=== PATIENT | female | born 1940 | race Hispanic/Latino ===

== ENCOUNTER 2018-06-20 07:45 | Day surgery (SDC) | payer OTHER ==
[2018-06-19 14:21] VITALS: BP 148/80
[2018-06-19 14:23] LABS: EOSINOPHILS % (AUTO) 1.5 % (0.0-8.0); HEMATOCRIT 39.2 % (36-48); LYMPHOCYTES % (AUTO) 20.5 % (21.0-51.0); MEAN CORPUSCULAR HEMOGLOBIN 33.1 pg (27.0-33.0); MEAN CORPUSCULAR HGB CONC 33.7 g/dL (32.0-36.0); MEAN CORPUSCULAR VOLUME 98.4 fL (79-99); PLATELET COUNT (AUTO) 208 K/uL (130-400); RED BLOOD CELL COUNT(AUTO) 3.98 MIL/uL (4.00-5.50); RED CELL DISTRIBUTION WIDTH 13.4 % (11.0-15.5); WHITE BLOOD COUNT (AUTO) 7.5 K/uL (4.8-10.8)
[2018-06-19 14:35] LABS: CREATININE 0.7 mg/dL (0.5-1.5); POTASSIUM 3.8 mmol/L (3.5-5.1)
[2018-06-19 14:37] LABS: INR 1.15 (0.85-1.15)
[2018-06-20] VITALS (18 sets, daily range): BP systolic 128–186; BP diastolic 52–106
[~2018-06-20] VITALS: Ht 157.5 cm; Wt 65.1 kg
[~2018-06-20 07:45] MED LIST: AMIO200T5 PO; FURO20TA4 PO; GABA-529 PO; LORA10TA7 PO; METO100T14 PO; OLME40TA18 PO; PANT40TA25 PO; RALO60TA13 PO; RIVA20TA PO; SIMV20TA6 PO; SODIUM CHLORIDE 0.9% 1000ML 1,000 ML IV SCH
[2018-06-20] MEDS ORDERED: MIDAZOLAM HCL 1 MG/ML 2ML VIAL ONE ×2 (08:39→08:40)
[2018-06-20] MEDS ORDERED: FENTANYL CITRATE PF 50 MCG/1 ML 2ML VIAL ONE (08:39)
== END 2018-06-20 12:00 | disposition home or self-care (01) ==
LOC: DAH 07:45
PROVIDERS: ATTEND Internal Medicine Cardiovascular Disease
DX: I48.1 Persistent atrial fibrillation (principal); E78.5 Hyperlipidemia, unspecified; E11.9 Type 2 diabetes mellitus without complications; I11.0 Hypertensive heart disease with heart failure; I50.32 Chronic diastolic (congestive) heart failure; Z79.01 Long term (current) use of anticoagulants; Z79.899 Other long term (current) drug therapy
CPT/HCPCS: 36415; 80048; 82948; 85025; 85610; 85730; 92960; 93005 ×2; 99156; A4606; J2250; J3010; 99155

== ENCOUNTER 2018-09-15 21:22 | Emergency (ER) | payer OTHER ==
[~2018-09-15 21:22] MED LIST changes: -METO100T14 PO; -SODIUM CHLORIDE 0.9% 1000ML 1,000 ML IV SCH
== END 2018-09-16 00:37 | disposition home or self-care (01) ==
LOC: EDH 21:22
DX: M17.12 Unilateral primary osteoarthritis, left knee (principal); I48.91 Unspecified atrial fibrillation; E11.9 Type 2 diabetes mellitus without complications; E78.5 Hyperlipidemia, unspecified; I10 Essential (primary) hypertension; I25.10 Atherosclerotic heart disease of native coronary artery without angina pectoris; Z79.899 Other long term (current) drug therapy; Z90.710 Acquired absence of both cervix and uterus
CPT/HCPCS: 73562; 93971

== ENCOUNTER → 2019-08-13 | Outpatient (CLI) | payer OTHER ==
[~2019-08-13] MED LIST changes: +SIMV-43 PO; -SIMV20TA6 PO
== END | disposition home or self-care (01) ==
LOC: RAH 16:09
PROVIDERS: ATTEND Internal Medicine
DX: M20.092 Other deformity of left finger(s) (principal); M85.842 Other specified disorders of bone density and structure, left hand; M25.742 Osteophyte, left hand; S60.02 Contusion of index finger without damage to nail; Y92.89 Other specified places as the place of occurrence of the external cause
CPT/HCPCS: 73130

== ENCOUNTER → 2020-02-27 | Outpatient (CLI) | payer OTHER ==
[~2020-02-27] MED LIST changes: -AMIO200T5 PO; +AMIO200T6 PO; -PANT40TA25 PO; +PANT40TA54 PO
== END | disposition home or self-care (01) ==
LOC: SHCH 11:22
PROVIDERS: ATTEND Internal Medicine Cardiovascular Disease
DX: R09.89 Other specified symptoms and signs involving the circulatory and respiratory systems (principal)
CPT/HCPCS: 93880

== ENCOUNTER 2020-10-22 06:50 | Day surgery (SDC) | payer MEDICARE, OTHER ==
[2020-10-21 12:29] LABS: BASOPHILS % (AUTO) 1.3 % (0.0-5.0); EOSINOPHILS % (AUTO) 1.4 % (0.0-8.0); HEMATOCRIT 38.1 % (36-48); LYMPHOCYTES % (AUTO) 24.2 % (21.0-51.0); MEAN CORPUSCULAR HEMOGLOBIN 32.9 pg (27.0-33.0); MEAN CORPUSCULAR HGB CONC 33.6 g/dL (32.0-36.0); MEAN CORPUSCULAR VOLUME 97.9 fL (79-99); MONOCYTES % (AUTO) 7.7 % (3.0-13.0); NEUTROPHILS % (AUTO) 64.9 % (40.0-77.0); PLATELET COUNT (AUTO) 224 K/uL (130-400); RED BLOOD CELL COUNT(AUTO) 3.89 MIL/uL (4.00-5.50); WHITE BLOOD COUNT (AUTO) 6.4 K/uL (4.8-10.8)
[2020-10-21 12:40] LABS: CREATININE 0.8 mg/dL (0.5-1.5)
[2020-10-21 13:00] LABS: INR 1.27 (0.85-1.15); PROTHROMBIN TIME 13.5 SEC (9.6-11.6)
[2020-10-21 13:02] LABS: PARTIAL THROMBOPLASTIN TIME 34.2 SEC (26.3-35.5)
[2020-10-21 15:38] VITALS: BP 117/68
[2020-10-22] VITALS (15 sets, daily range): BP systolic 130–163; BP diastolic 50–113
[~2020-10-22] VITALS: Ht 157.5 cm; Wt 65.7 kg
[~2020-10-22 06:50] MED LIST changes: +0.9%NACL 1000ML 1,000 ML IV SCH; -AMIO200T6 PO; +ASCO500C18 PO; +CA/D1TAB7 PO; +EYEDROPS OU; -FURO20TA4 PO; +LORA10CA PO; -LORA10TA7 PO; +MAGN400T40 PO; +METO75TA PO; +MULT-1250 PO; +OLME-9 PO; -OLME40TA18 PO; +PROP325C5 PO; +TRIA10.8 NS; +VALA10002 PO; +ZINC30CA PO
[2020-10-22] MEDS ORDERED: MIDAZOLAM HCL 1 MG/ML 2ML VIAL ONE (08:52)
[2020-10-22] MEDS ORDERED: FENTANYL CITRATE PF 50 MCG/1 ML 2ML VIAL ONE (08:52)
[2020-10-22] MEDS ORDERED: FLUMAZENIL 0.1MG/1ML 5ML VIAL IV ONE (09:06)
[2020-10-22] MEDS ORDERED: ONDANSETRON 4MG INJ ONE (09:30)
[2021-01-20] MEDS ORDERED: VYZULTA (15:22)
[2021-01-20] MEDS ORDERED: VYZULTA 0.024% OU (15:22)
[2021-01-20] MEDS ORDERED: DRON400T7 PO (15:22)
[2021-01-20] MEDS ORDERED: APIX5TAB PO (15:22)
[2021-05-20] MEDS ORDERED: AMIO200T68 PO (08:41)
== END 2020-10-22 11:28 | disposition home or self-care (01) ==
LOC: DAH 06:50
PROVIDERS: ATTEND Internal Medicine Cardiovascular Disease
DX: I48.0 Paroxysmal atrial fibrillation (principal); I11.0 Hypertensive heart disease with heart failure; I50.32 Chronic diastolic (congestive) heart failure; E11.9 Type 2 diabetes mellitus without complications; E78.5 Hyperlipidemia, unspecified; Z90.710 Acquired absence of both cervix and uterus; Z98.890 Other specified postprocedural states; Z79.1 Long term (current) use of non-steroidal anti-inflammatories (NSAID); Z79.01 Long term (current) use of anticoagulants; Z79.899 Other long term (current) drug therapy
CPT/HCPCS: 36415; 80048; 82948 ×2; 85025; 85610; 85730; 92960; 93005 ×2; A4215; A4216; A4221; A4222; A4223 ×3; A4606; A4663; J2250; J2405; J3010; J3490; J7030; 99152

== ENCOUNTER → 2020-11-27 | Outpatient (CLI) | payer MEDICARE, OTHER ==
[~2020-11-27] MED LIST changes: -0.9%NACL 1000ML 1,000 ML IV SCH; +DRON400T2 PO; +SODIUM CHLORIDE 0.9% 1000ML 1,000 ML IV SCH
[2020-11-27 14:46] LABS: BASOPHILS % (AUTO) 0.9 % (0.0-5.0); EOSINOPHILS % (AUTO) 1.2 % (0.0-8.0); HEMATOCRIT 23.3 % (36-48); LYMPHOCYTES % (AUTO) 24.4 % (21.0-51.0); MEAN CORPUSCULAR HEMOGLOBIN 33.2 pg (27.0-33.0); MEAN CORPUSCULAR VOLUME 100.4 fL (79-99); MONOCYTES % (AUTO) 7.3 % (3.0-13.0); NEUTROPHILS % (AUTO) 65.9 % (40.0-77.0); PLATELET COUNT (AUTO) 243 K/uL (130-400); RED BLOOD CELL COUNT(AUTO) 2.32 MIL/uL (4.00-5.50); WHITE BLOOD COUNT (AUTO) 7.4 K/uL (4.8-10.8)
[2020-11-27 14:53] LABS: CREATININE 0.8 mg/dL (0.5-1.5); POTASSIUM 3.9 mmol/L (3.5-5.1)
[2020-11-27 15:05] LABS: INR 1.26 (0.85-1.15); PROTHROMBIN TIME 13.4 SEC (9.6-11.6)
[2020-11-27 15:06] LABS: PARTIAL THROMBOPLASTIN TIME 28.7 SEC (26.3-35.5)
== END ==
LOC: DAH 10:00 → EDSTATUS 13:00
PROVIDERS: ATTEND Internal Medicine Cardiovascular Disease
DX: Z01.818 Encounter for other preprocedural examination (principal); I48.19 Other persistent atrial fibrillation
CPT/HCPCS: 36415; 80048; 85025; 85610; 85730

== ENCOUNTER 2020-11-28 10:21 | Inpatient (IN) | payer MEDICARE, OTHER ==
[~2020-11-28] VITALS: Ht 160 cm; Wt 66.2 kg
[~2020-11-28 10:21] MED LIST changes: -DRON400T2 PO; -SODIUM CHLORIDE 0.9% 1000ML 1,000 ML IV SCH
[2020-11-28 11:34] LABS: APPEARANCE,URINE Clear (CLEAR); BILIRUBIN,URINE Negative (NEGATIVE); COLOR,URINE Yellow (YELLOW); GLUCOSE, URINE (UA) Negative (NEGATIVE); KETONES,URINE Negative (NEGATIVE); LEUKOCYTE ESTERASE ,URINE Trace (NEGATIVE); NITRATE,URINE Negative (NEGATIVE); OCCULT BLOOD,URINE Negative (NEGATIVE); PROTEIN,URINE Negative (NEGATIVE); UROBILINOGEN,URINE 0.2 mg/dL (0.2-1.0)
[2020-11-28 11:39] LABS: BASOPHILS % (AUTO) 1.1 % (0.0-5.0); EOSINOPHILS % (AUTO) 1.5 % (0.0-8.0); HEMATOCRIT 25.5 % (36-48); LYMPHOCYTES % (AUTO) 26.6 % (21.0-51.0); MEAN CORPUSCULAR HEMOGLOBIN 33.2 pg (27.0-33.0); MEAN CORPUSCULAR HGB CONC 32.9 g/dL (32.0-36.0); MEAN CORPUSCULAR VOLUME 100.8 fL (79-99); MONOCYTES % (AUTO) 4.7 % (3.0-13.0); NEUTROPHILS % (AUTO) 65.8 % (40.0-77.0); PLATELET COUNT (AUTO) 296 K/uL (130-400); RED BLOOD CELL COUNT(AUTO) 2.53 MIL/uL (4.00-5.50); WHITE BLOOD COUNT (AUTO) 6.7 K/uL (4.8-10.8)
[2020-11-28 11:45] LABS: CREATININE 0.9 mg/dL (0.5-1.5); POTASSIUM 3.6 mmol/L (3.5-5.1)
[2020-11-28 11:49] LABS: INR 1.49 (0.85-1.15); PROTHROMBIN TIME 15.7 SEC (9.6-11.6)
[2020-11-28 11:50] LABS: ALBUMIN 3.6 g/dL (3.5-5.0); BILIRUBIN,TOTAL 0.6 mg/dL (0.2-1.0); PARTIAL THROMBOPLASTIN TIME 32.3 SEC (26.3-35.5); TOTAL PROTEIN, SERUM 7.1 g/dL (6.0-8.3)
[2020-11-28 11:54] LABS: WBC,URINE 0-1 /HPF (0-1)
[2020-11-28 11:55] LABS: BACTERIA,URINE Rare /HPF (None Seen)
[2020-11-28 11:56] LABS: RBC,URINE None Seen /HPF (0-1)
[2020-11-28] MEDS ORDERED: PANTOPRAZOLE 40 MG/VIAL IVP SCH (13:30)
[2020-11-28] MEDS ORDERED: POTASSIUM CHLORIDE 20MEQ/100ML 100 ML IV PRN (13:45)
[2020-11-28] MEDS ORDERED: PANTOPRAZOLE 40 MG/VIAL ONE (14:11)
[2020-11-28 14:39] LABS: HEMATOCRIT 23.4 % (36-48)
[2020-11-28] MEDS ORDERED: PANTOPRAZOLE 40MG INJ 80 MG in 0.9%NACL 100ML 100 ML IVP SCH (15:00)
[2020-11-28 15:57] VITALS: BP 131/55
[2020-11-28] MEDS ORDERED: DRON400T7 PO (16:23)
[2020-11-28] MEDS ORDERED: 0.9% NACL 500ML IV.SOLN 500 ML IV ONE ×2 (17:34→21:20)
[2020-11-28 17:46] LABS: HEMATOCRIT 24.5 % (36-48)
[2020-11-28 20:22] VITALS: BP 130/80
[2020-11-28] MEDS: METOPROLOL TARTRATE 50 MG TAB PO SCH (20:31)
[2020-11-28] MEDS: DRONEDARONE HYDROCHLORIDE 400 MG TABLET PO SCH (20:32)
[2020-11-28] MEDS: SIMVASTATIN 20 MG TABLET PO SCH (20:32)
[2020-11-29] VITALS: BP 146/67
[2020-11-29] MEDS ORDERED: ACETAMINOPHEN 325 MG TAB ONE (00:13)
[2020-11-29] MEDS ORDERED: ACETAMINOPHEN 325 MG TAB PO PRN (00:15)
[2020-11-29 00:27] LABS: HEMATOCRIT 26.2 % (36-48)
[2020-11-29 00:44] LABS: INR 1.18 (0.85-1.15); PROTHROMBIN TIME 12.7 SEC (9.6-11.6)
[2020-11-29 00:45] LABS: PARTIAL THROMBOPLASTIN TIME 24.8 SEC (26.3-35.5)
[2020-11-29 02:55] VITALS: BP 146/88
[2020-11-29 06:36] LABS: HEMATOCRIT 26.6 % (36-48)
[2020-11-29 07:49] VITALS: BP 165/81
[2020-11-29] MEDS: DRONEDARONE HYDROCHLORIDE 400 MG TABLET PO SCH ×2 (08:32→21:59)
[2020-11-29] MEDS: METOPROLOL TARTRATE 50 MG TAB PO SCH ×2 (08:33→21:59)
[2020-11-29] MEDS: GABAPENTIN 100 MG CAPSULE PO SCH (08:33)
[2020-11-29] MEDS: ACETAMINOPHEN 325 MG TAB PO PRN ×2 (08:38→17:33)
[2020-11-29 12:00] VITALS: BP 140/90
[2020-11-29 12:32] LABS: HEMATOCRIT 25.3 % (36-48)
[2020-11-29 16:00] VITALS: BP 129/57
[2020-11-29 18:00] LABS: HEMATOCRIT 25.7 % (36-48)
[2020-11-29 20:00] VITALS: BP 131/65
[2020-11-29] MEDS ORDERED: EYEDROPS OU SCH (21:00)
[2020-11-29] MEDS: EYEDROPS OU SCH (21:59)
[2020-11-29] MEDS: SIMVASTATIN 20 MG TABLET PO SCH (21:59)
[2020-11-30] VITALS (15 sets, daily range): BP systolic 119–165; BP diastolic 63–93
[2020-11-30 00:17] LABS: HEMATOCRIT 24.2 % (36-48)
[2020-11-30 05:35] LABS: HEMATOCRIT 26.8 % (36-48)
[2020-11-30] MEDS ORDERED: ZINC GLUCONATE ZINC PICOLINATE 30 MG PO SCH (09:00)
[2020-11-30] MEDS: METOPROLOL TARTRATE 50 MG TAB PO SCH ×2 (10:21→20:52)
[2020-11-30] MEDS: DRONEDARONE HYDROCHLORIDE 400 MG TABLET PO SCH ×2 (10:22→20:52)
[2020-11-30] MEDS: GABAPENTIN 100 MG CAPSULE PO SCH (10:22)
[2020-11-30] MEDS ORDERED: GLYCOPYRROLATE 1 MG/5 ML SYRINGE ONE (10:58)
[2020-11-30] MEDS ORDERED: PROPOFOL 10 MG/ML 20ML VIAL IV ONE (10:58)
[2020-11-30] MEDS ORDERED: LIDOCAINE HCL 1% 20 ML VIAL ONE (11:01)
[2020-11-30 12:49] LABS: HEMATOCRIT 28.2 % (36-48)
[2020-11-30] MEDS: LACTULOSE 20 GM/30 ML UDCUP PO SCH ×2 (13:44→14:20)
[2020-11-30] MEDS ORDERED: MAGNESIUM CITRATE 296 ML SOLUTION PO SCH (15:00)
[2020-11-30] MEDS ORDERED: PEG 3350/NA SULF,BICARB,CL/KCL 4000 ML SOLN PO SCH (16:00)
[2020-11-30] MEDS ORDERED: BISACODYL 5 MG TABLET.DR PO ONE (18:00)
[2020-11-30] MEDS ORDERED: MAGNESIUM CITRATE 296 ML SOLUTION ONE (18:36)
[2020-11-30] MEDS: SIMVASTATIN 20 MG TABLET PO SCH (20:52)
[2020-11-30] MEDS: EYEDROPS OU SCH (21:00)
[2020-12-01] VITALS (17 sets, daily range): BP systolic 114–157; BP diastolic 56–86
[2020-12-01 00:33] LABS: HEMATOCRIT 31.4 % (36-48)
[2020-12-01 05:13] LABS: BASOPHILS % (AUTO) 0.9 % (0.0-5.0); EOSINOPHILS % (AUTO) 1.6 % (0.0-8.0); MEAN CORPUSCULAR HEMOGLOBIN 32.5 pg (27.0-33.0); MEAN CORPUSCULAR VOLUME 98.5 fL (79-99); MONOCYTES % (AUTO) 9.2 % (3.0-13.0); NEUTROPHILS % (AUTO) 68.9 % (40.0-77.0); PLATELET COUNT (AUTO) 237 K/uL (130-400); RED BLOOD CELL COUNT(AUTO) 2.74 MIL/uL (4.00-5.50); RED CELL DISTRIBUTION WIDTH 13.8 % (11.0-15.5); WHITE BLOOD COUNT (AUTO) 8.1 K/uL (4.8-10.8)
[2020-12-01 05:23] LABS: ALBUMIN 3.6 g/dL (3.5-5.0); BILIRUBIN,TOTAL 0.7 mg/dL (0.2-1.0); CREATININE 0.7 mg/dL (0.5-1.5); POTASSIUM 3.3 mmol/L (3.5-5.1); TOTAL PROTEIN, SERUM 6.6 g/dL (6.0-8.3)
[2020-12-01] MEDS ORDERED: LIDOCAINE HCL-MPF 1% 2ML VIAL IV PRN (08:15)
[2020-12-01] MEDS ORDERED: POTASSIUM CHLORIDE 10% ELIXIR 20 MEQ/15 ML UDCUP PO PRN (08:15)
[2020-12-01] MEDS ORDERED: POTASSIUM CHLORIDE 20MEQ/100ML 100 ML IV PRN (08:15)
[2020-12-01] MEDS: DRONEDARONE HYDROCHLORIDE 400 MG TABLET PO SCH ×2 (09:08→20:53)
[2020-12-01] MEDS: GABAPENTIN 100 MG CAPSULE PO SCH (09:08)
[2020-12-01] MEDS: METOPROLOL TARTRATE 50 MG TAB PO SCH ×2 (09:08→20:52)
[2020-12-01] MEDS ORDERED: 0.9%NACL 1000ML 1,000 ML IV ONE (12:29)
[2020-12-01] MEDS ORDERED: PROPOFOL 10 MG/ML 20ML VIAL IV ONE (13:53)
[2020-12-01] MEDS: KCL 20 MEQ ERTAB PO PRN ×3 (15:26→19:09)
[2020-12-01] MEDS: SIMVASTATIN 20 MG TABLET PO SCH (20:50)
[2020-12-01] MEDS: EYEDROPS OU SCH (20:59)
[2020-12-02] VITALS (14 sets, daily range): BP systolic 114–172; BP diastolic 55–93
[2020-12-02 04:59] LABS: BASOPHILS % (AUTO) 1.1 % (0.0-5.0); EOSINOPHILS % (AUTO) 1.3 % (0.0-8.0); HEMATOCRIT 25.3 % (36-48); LYMPHOCYTES % (AUTO) 30.9 % (21.0-51.0); MEAN CORPUSCULAR HEMOGLOBIN 31.4 pg (27.0-33.0); MEAN CORPUSCULAR HGB CONC 32.4 g/dL (32.0-36.0); MEAN CORPUSCULAR VOLUME 96.9 fL (79-99); MONOCYTES % (AUTO) 10.1 % (3.0-13.0); NEUTROPHILS % (AUTO) 56.4 % (40.0-77.0); PLATELET COUNT (AUTO) 225 K/uL (130-400); RED BLOOD CELL COUNT(AUTO) 2.61 MIL/uL (4.00-5.50); RED CELL DISTRIBUTION WIDTH 13.9 % (11.0-15.5); WHITE BLOOD COUNT (AUTO) 4.8 K/uL (4.8-10.8)
[2020-12-02 05:16] LABS: ALBUMIN 3.2 g/dL (3.5-5.0); BILIRUBIN,TOTAL 0.8 mg/dL (0.2-1.0); CREATININE 0.5 mg/dL (0.5-1.5); POTASSIUM 3.9 mmol/L (3.5-5.1)
[2020-12-02] MEDS: GABAPENTIN 100 MG CAPSULE PO SCH (09:00)
[2020-12-02] MEDS: DRONEDARONE HYDROCHLORIDE 400 MG TABLET PO SCH (09:00)
[2020-12-02] MEDS: METOPROLOL TARTRATE 50 MG TAB PO SCH ×2 (09:09→20:38)
[2020-12-02] MEDS ORDERED: PROPOFOL 10 MG/ML 20ML VIAL IV ONE (12:04)
[2020-12-02] MEDS: EYEDROPS OU SCH (20:37)
[2020-12-02] MEDS: SIMVASTATIN 20 MG TABLET PO SCH (20:38)
[2020-12-03 04:40] VITALS: BP 115/58
[2020-12-03 05:46] LABS: BASOPHILS % (AUTO) 1.1 % (0.0-5.0); EOSINOPHILS % (AUTO) 2.3 % (0.0-8.0); HEMATOCRIT 26.3 % (36-48); LYMPHOCYTES % (AUTO) 27.2 % (21.0-51.0); MEAN CORPUSCULAR HEMOGLOBIN 32.2 pg (27.0-33.0); MEAN CORPUSCULAR HGB CONC 33.5 g/dL (32.0-36.0); MEAN CORPUSCULAR VOLUME 96.3 fL (79-99); MONOCYTES % (AUTO) 10.5 % (3.0-13.0); NEUTROPHILS % (AUTO) 58.7 % (40.0-77.0); PLATELET COUNT (AUTO) 244 K/uL (130-400); RED BLOOD CELL COUNT(AUTO) 2.73 MIL/uL (4.00-5.50); RED CELL DISTRIBUTION WIDTH 13.6 % (11.0-15.5); WHITE BLOOD COUNT (AUTO) 5.3 K/uL (4.8-10.8)
[2020-12-03 05:57] LABS: ALBUMIN 3.1 g/dL (3.5-5.0); BILIRUBIN,TOTAL 0.8 mg/dL (0.2-1.0); CREATININE 0.6 mg/dL (0.5-1.5); POTASSIUM 3.6 mmol/L (3.5-5.1); TOTAL PROTEIN, SERUM 6.1 g/dL (6.0-8.3)
[2020-12-03] MEDS: GABAPENTIN 100 MG CAPSULE PO SCH (07:22)
[2020-12-03] MEDS: METOPROLOL TARTRATE 50 MG TAB PO SCH ×2 (07:22→20:29)
[2020-12-03 08:00] VITALS: BP 141/81
[2020-12-03] MEDS ORDERED: FE F1CAP33 PO (09:57)
[2020-12-03] MEDS ORDERED: HEPARIN 5,000 UNIT VIAL SQ PRN (10:00)
[2020-12-03] MEDS ORDERED: HEPARIN 25,000 UNITS/250ML D5W 250 ML IV SCH (10:00)
[2020-12-03] MEDS ORDERED: IRON SUCROSE COMPLEX 100 MG in 0.9%NACL 50ML 50 ML IV ONE (10:27)
[2020-12-03] MEDS ORDERED: COMPOUND IV MISC 1 EACH IVSOLN MISC PRN (10:30)
[2020-12-03 11:26] LABS: INR 1.1 (0.85-1.15); PROTHROMBIN TIME 11.9 SEC (9.6-11.6)
[2020-12-03 11:28] LABS: PARTIAL THROMBOPLASTIN TIME 23.9 SEC (26.3-35.5)
[2020-12-03 12:00] VITALS: BP 144/74
[2020-12-03] MEDS ORDERED: HEPARIN 5,000 UNIT VIAL IV SCH (12:30)
[2020-12-03 16:00] VITALS: BP 153/66
[2020-12-03 19:03] LABS: INR 1.16 (0.85-1.15); PROTHROMBIN TIME 12.5 SEC (9.6-11.6)
[2020-12-03 19:17] VITALS: BP 130/65
[2020-12-03 19:21] LABS: PARTIAL THROMBOPLASTIN TIME > 139.0 SEC (26.3-35.5)
[2020-12-03] MEDS: SIMVASTATIN 20 MG TABLET PO SCH (20:29)
[2020-12-03] MEDS: EYEDROPS OU SCH (20:32)
[2020-12-03 23:54] VITALS: BP 122/58
[2020-12-04 01:03] LABS: INR 1.15 (0.85-1.15); PROTHROMBIN TIME 12.4 SEC (9.6-11.6)
[2020-12-04 01:04] LABS: PARTIAL THROMBOPLASTIN TIME 45.6 SEC (26.3-35.5)
[2020-12-04 04:35] VITALS: BP 101/74
[2020-12-04 05:19] LABS: HEMATOCRIT 26.7 % (36-48); MEAN CORPUSCULAR HEMOGLOBIN 31.1 pg (27.0-33.0); MEAN CORPUSCULAR HGB CONC 32.6 g/dL (32.0-36.0); MEAN CORPUSCULAR VOLUME 95.4 fL (79-99); PLATELET COUNT (AUTO) 261 K/uL (130-400); RED CELL DISTRIBUTION WIDTH 13.4 % (11.0-15.5); WHITE BLOOD COUNT (AUTO) 7.5 K/uL (4.8-10.8)
[2020-12-04 05:36] LABS: CREATININE 0.5 mg/dL (0.5-1.5); POTASSIUM 3.6 mmol/L (3.5-5.1)
[2020-12-04 06:47] LABS: BAND NEUTROPHILS % (MANUAL) 1 % (0-2); BASOPHILS % (MANUAL) 3 % (0-2); LYMPHOCYTES % (MANUAL) 16 % (22-44); MAN.DIFF COMMENT-IMPRESSION MANUAL DIFFERENTIAL; MONOCYTES % (MANUAL) 5 % (2-9); PLATELET MORPHOLOGY COMMENT ADEQUATE; SEGMENTED NEUTROPHILS % 75 % (40-70)
[2020-12-04 08:09] VITALS: BP 157/83
[2020-12-04] MEDS: GABAPENTIN 100 MG CAPSULE PO SCH (08:58)
[2020-12-04] MEDS: METOPROLOL TARTRATE 50 MG TAB PO SCH (08:58)
[2020-12-04] MEDS: KCL 20 MEQ ERTAB PO PRN ×2 (09:03→13:27)
[2020-12-04 12:10] VITALS: BP 125/68
[2021-01-20] MEDS ORDERED: VYZULTA 0.024% OU (15:22)
[2021-01-20] MEDS ORDERED: APIX5TAB PO (15:22)
[2021-01-20] MEDS ORDERED: VYZULTA (15:22)
[2021-01-20] MEDS ORDERED: DRON400T7 PO (15:22)
[2021-05-20] MEDS ORDERED: AMIO200T68 PO (08:41)
== END 2020-12-04 13:30 | disposition home or self-care (01) | DRG 378 ==
LOC: EDH 10:21 → EDHIP 13:27 → 4BH 15:46
PROVIDERS: ADMIT Internal Medicine; ATTEND Internal Medicine
PROC: 30233K1 Transfusion of Nonautologous Frozen Plasma into Peripheral Vein, Percutaneous Approach (ICD-10-PCS; principal; 2020-11-28)
PROC: 30233N1 Transfusion of Nonautologous Red Blood Cells into Peripheral Vein, Percutaneous Approach (ICD-10-PCS; 2020-11-28)
PROC: 0DJ08ZZ Inspection of Upper Intestinal Tract, Via Natural or Artificial Opening Endoscopic (ICD-10-PCS; 2020-11-30)
PROC: 0DJD8ZZ Inspection of Lower Intestinal Tract, Via Natural or Artificial Opening Endoscopic (ICD-10-PCS; 2020-12-01)
PROC: 0DJD8ZZ Inspection of Lower Intestinal Tract, Via Natural or Artificial Opening Endoscopic (ICD-10-PCS; 2020-12-02)
PROC: 0DJ08ZZ Inspection of Upper Intestinal Tract, Via Natural or Artificial Opening Endoscopic (ICD-10-PCS; 2020-12-02)
DX: K92.1 Melena (principal); D62 Acute posthemorrhagic anemia; I48.19 Other persistent atrial fibrillation; D68.9 Coagulation defect, unspecified; D50.9 Iron deficiency anemia, unspecified; I95.9 Hypotension, unspecified; E11.9 Type 2 diabetes mellitus without complications; I10 Essential (primary) hypertension; R77.8 Other specified abnormalities of plasma proteins; E87.6 Hypokalemia; K27.9 Peptic ulcer, site unspecified, unspecified as acute or chronic, without hemorrhage or perforation; Z20.822 Contact with and (suspected) exposure to COVID-19; K55.20 Angiodysplasia of colon without hemorrhage; E78.5 Hyperlipidemia, unspecified; K44.9 Diaphragmatic hernia without obstruction or gangrene; K64.0 First degree hemorrhoids; M19.90 Unspecified osteoarthritis, unspecified site; T50.905A Adverse effect of unspecified drugs, medicaments and biological substances, initial encounter; Y92.89 Other specified places as the place of occurrence of the external cause; Z79.01 Long term (current) use of anticoagulants; Z90.711 Acquired absence of uterus with remaining cervical stump; Z83.3 Family history of diabetes mellitus; Z82.5 Family history of asthma and other chronic lower respiratory diseases; Z82.49 Family history of ischemic heart disease and other diseases of the circulatory system; Z82.3 Family history of stroke; Z82.0 Family history of epilepsy and other diseases of the nervous system; Z80.7 Family history of other malignant neoplasms of lymphoid, hematopoietic and related tissues; K21.00 Gastro-esophageal reflux disease with esophagitis, without bleeding; K57.30 Diverticulosis of large intestine without perforation or abscess without bleeding; K29.00 Acute gastritis without bleeding
CPT/HCPCS: 36415; 36430; 43235; 44360; 45378; 71045; 76705; 80048; 80053; 81001; 82270; 82550; 82948; 83605; 84484; 85014; 85018; 85025; 85610; 85730; 86850; 86900; 86901; 86922; 86927; 87426; 93005; A4606; C9113; G0378; J1644; J1756; J2704; J3490; J7030; J7040; P9016; P9017; U0003

== ENCOUNTER 2021-01-21 06:54 | Day surgery (SDC) | payer MEDICARE, OTHER ==
[2021-01-19 15:35] LABS: INR 1.1 (0.85-1.15); PROTHROMBIN TIME 11.9 SEC (9.6-11.6)
[2021-01-19 15:36] LABS: PARTIAL THROMBOPLASTIN TIME 29.6 SEC (26.3-35.5)
[2021-01-19 15:48] LABS: BASOPHILS % (AUTO) 0.9 % (0.0-5.0); CREATININE 0.8 mg/dL (0.5-1.5); EOSINOPHILS % (AUTO) 2.2 % (0.0-8.0); HEMATOCRIT 38.4 % (36-48); LYMPHOCYTES % (AUTO) 24.3 % (21.0-51.0); MEAN CORPUSCULAR HEMOGLOBIN 31.7 pg (27.0-33.0); MEAN CORPUSCULAR HGB CONC 32.6 g/dL (32.0-36.0); MEAN CORPUSCULAR VOLUME 97.5 fL (79-99); MONOCYTES % (AUTO) 8.1 % (3.0-13.0); NEUTROPHILS % (AUTO) 64.2 % (40.0-77.0); PLATELET COUNT (AUTO) 289 K/uL (130-400); POTASSIUM 3.7 mmol/L (3.5-5.1); RED BLOOD CELL COUNT(AUTO) 3.94 MIL/uL (4.00-5.50); RED CELL DISTRIBUTION WIDTH 13.6 % (11.0-15.5); WHITE BLOOD COUNT (AUTO) 6.7 K/uL (4.8-10.8)
[2021-01-20 08:58] VITALS: BP 105/60
[~2021-01-21] VITALS: Ht 157.5 cm; Wt 65.1 kg
[2021-01-21] VITALS (12 sets, daily range): BP systolic 133–177; BP diastolic 46–100
[~2021-01-21 06:54] MED LIST changes: +APIX5TAB PO; -ASCO500C18 PO; -CA/D1TAB7 PO; +DRON400T7 PO; -EYEDROPS OU; -MAGN400T40 PO; -MULT-1250 PO; -PROP325C5 PO; -RIVA20TA PO; +SODIUM CHLORIDE 0.9% 500ML 500 ML IV SCH; -VALA10002 PO; +VYZULTA 0.024% OU; -ZINC30CA PO
[2021-01-21] MEDS ORDERED: SODIUM CHLORIDE 0.9% 1000ML 1,000 ML IV ONE (07:11)
[2021-01-21] MEDS ORDERED: FLUMAZENIL 0.1MG/1ML 5ML VIAL IV ONE (09:33)
[2021-01-21] MEDS ORDERED: FENTANYL CITRATE PF 50 MCG/1 ML 2ML VIAL ONE (09:33)
[2021-01-21] MEDS ORDERED: NALOXONE HCL 0.4 MG/1 ML ML ONE (09:33)
[2021-01-21] MEDS ORDERED: MIDAZOLAM HCL 1 MG/ML 2ML VIAL ONE (09:34)
== END 2021-01-21 10:47 | disposition home or self-care (01) ==
LOC: DAH 06:54
PROVIDERS: ATTEND Internal Medicine Cardiovascular Disease
DX: I48.0 Paroxysmal atrial fibrillation (principal); I10 Essential (primary) hypertension; E78.5 Hyperlipidemia, unspecified; E11.9 Type 2 diabetes mellitus without complications; Z79.01 Long term (current) use of anticoagulants; Z79.899 Other long term (current) drug therapy; Z82.49 Family history of ischemic heart disease and other diseases of the circulatory system; Z83.3 Family history of diabetes mellitus; Z90.710 Acquired absence of both cervix and uterus; Z98.890 Other specified postprocedural states
CPT/HCPCS: 36415; 80048; 85025; 85610; 85730; 92960; 93005 ×2; A4215; A4216; A4221; A4222; A4223 ×3; A4606; A4663; J2250; J3010; J7030; 99152; J2310; J3490

== ENCOUNTER → 2021-02-22 | Outpatient (CLI) | payer MEDICARE, OTHER ==
[~2021-02-22] MED LIST changes: -SODIUM CHLORIDE 0.9% 500ML 500 ML IV SCH
== END | disposition home or self-care (01) ==
LOC: RAH 10:10
PROVIDERS: ATTEND Internal Medicine
DX: Z12.31 Encounter for screening mammogram for malignant neoplasm of breast (principal)
CPT/HCPCS: 77067

== ENCOUNTER → 2021-04-20 | Outpatient (CLI) | payer MEDICARE | END | disposition home or self-care (01) | LOC: SHCH 13:52 | PROVIDERS: ATTEND Internal Medicine Cardiovascular Disease | DX: I35.1 Nonrheumatic aortic (valve) insufficiency (principal); I48.11 Longstanding persistent atrial fibrillation; I10 Essential (primary) hypertension; E78.5 Hyperlipidemia, unspecified; E11.9 Type 2 diabetes mellitus without complications; Z77.22 Contact with and (suspected) exposure to environmental tobacco smoke (acute) (chronic); R55 Syncope and collapse | CPT/HCPCS: 93306; 93356 ==

== ENCOUNTER 2021-05-19 21:40 | Observation (INO) | payer MEDICARE ==
[~2021-05-19] VITALS: Ht 160 cm; Wt 64.3 kg
[2021-05-19 22:34] VITALS: BP 163/73
[2021-05-19 23:07] LABS: BASOPHILS % (AUTO) 1.4 % (0.0-5.0); EOSINOPHILS % (AUTO) 2.3 % (0.0-8.0); HEMATOCRIT 35.4 % (36-48); MEAN CORPUSCULAR HEMOGLOBIN 33.4 pg (27.0-33.0); MEAN CORPUSCULAR HGB CONC 33.3 g/dL (32.0-36.0); MEAN CORPUSCULAR VOLUME 100.3 fL (79-99); MONOCYTES % (AUTO) 9.9 % (3.0-13.0); NEUTROPHILS % (AUTO) 60.9 % (40.0-77.0); PLATELET COUNT (AUTO) 229 K/uL (130-400); RED BLOOD CELL COUNT(AUTO) 3.53 MIL/uL (4.00-5.50); RED CELL DISTRIBUTION WIDTH 13.9 % (11.0-15.5); WHITE BLOOD COUNT (AUTO) 5.8 K/uL (4.8-10.8)
[2021-05-19 23:20] LABS: INR 1.1 (0.85-1.15); PROTHROMBIN TIME 11.9 SEC (9.6-11.6)
[2021-05-19 23:21] LABS: CREATININE 0.7 mg/dL (0.5-1.5); POTASSIUM 4.1 mmol/L (3.5-5.1)
[2021-05-19 23:25] LABS: ALBUMIN 3.7 g/dL (3.5-5.0); BILIRUBIN,TOTAL 0.5 mg/dL (0.2-1.0); TOTAL PROTEIN, SERUM 7.4 g/dL (6.0-8.3)
[2021-05-20] VITALS (12 sets, daily range): BP systolic 128–182; BP diastolic 58–93
[2021-05-20] MEDS ORDERED: NITROGLYCERIN 1GM OINT 1 INCH/1GM TD ONE (00:30)
[2021-05-20] MEDS ORDERED: ONDANSETRON 4MG INJ IV PRN (01:00)
[2021-05-20] MEDS ORDERED: ACETAMINOPHEN 325 MG TAB PO PRN ×2 (01:00)
[2021-05-20] MEDS ORDERED: LACTULOSE 20 GM/30 ML UDCUP PO PRN (01:00)
[2021-05-20] MEDS ORDERED: NITROGLYCERIN 1GM OINT 1 INCH/1GM TD SCH (08:00)
[2021-05-20] MEDS ORDERED: AMOX1TAB16 PO (08:41)
[2021-05-20] MEDS ORDERED: AMIO200T6 PO (08:41)
[2021-05-20] MEDS ORDERED: OLME-7 PO (08:41)
[2021-05-20] MEDS ORDERED: METO50TA18 PO (08:41)
[2021-05-20] MEDS ORDERED: FAMOTIDINE 20MG TAB PO SCH (09:00)
[2021-05-20] MEDS ORDERED: ENOXAPARIN SODIUM 40 MG/0.4 ML SYRINGE SQ SCH (09:00)
[2021-05-20] MEDS ORDERED: METOPROLOL TARTRATE 25 MG TAB PO SCH (09:00)
[2021-05-20] MEDS ORDERED: MIDAZOLAM HCL 1 MG/ML 2ML VIAL IVP ONE (12:30)
[2021-05-20] MEDS ORDERED: FENTANYL CITRATE PF 50 MCG/1 ML 2ML VIAL IVP ONE (12:30)
[2021-05-20] MEDS ORDERED: ATORVASTATIN 20 MG TABLET PO SCH (21:00)
== END 2021-05-20 18:05 | disposition home or self-care (01) ==
LOC: EDH 21:40 → EDHIP 05-20 00:43 → 4CH 05-20 11:05
PROVIDERS: ADMIT Internal Medicine; ATTEND Internal Medicine
DX: I48.20 Chronic atrial fibrillation, unspecified (principal); S90.02XA Contusion of left ankle, initial encounter; I10 Essential (primary) hypertension; R07.89 Other chest pain; E78.5 Hyperlipidemia, unspecified; D68.59 Other primary thrombophilia; R77.8 Other specified abnormalities of plasma proteins; R06.00 Dyspnea, unspecified; E11.9 Type 2 diabetes mellitus without complications; Z79.01 Long term (current) use of anticoagulants; Z90.710 Acquired absence of both cervix and uterus; W19.XXXA Unspecified fall, initial encounter; Y92.89 Other specified places as the place of occurrence of the external cause; Y93.89 Activity, other specified; Y99.8 Other external cause status
CPT/HCPCS: 36415; 71045; 80053; 83036; 84443; 84484 ×3; 85025; 85610; 92960; 93005 ×3; 93971; 96372; 99285; G0378 ×17; J1650; J2250; J3010

== ENCOUNTER 2022-01-19 07:53 | Day surgery (SDC) | payer MEDICARE, OTHER ==
[2022-01-17 11:22] LABS: EOSINOPHILS % (AUTO) 1.5 % (0.0-8.0); HEMATOCRIT 38.9 % (36-48); LYMPHOCYTES % (AUTO) 22.5 % (21.0-51.0); MEAN CORPUSCULAR HEMOGLOBIN 33.2 pg (27.0-33.0); MEAN CORPUSCULAR HGB CONC 33.7 g/dL (32.0-36.0); MEAN CORPUSCULAR VOLUME 98.7 fL (79-99); MONOCYTES % (AUTO) 7.6 % (3.0-13.0); NEUTROPHILS % (AUTO) 67.1 % (40.0-77.0); PLATELET COUNT (AUTO) 257 K/uL (130-400); RED BLOOD CELL COUNT(AUTO) 3.94 MIL/uL (4.00-5.50); RED CELL DISTRIBUTION WIDTH 13.1 % (11.0-15.5); WHITE BLOOD COUNT (AUTO) 7.2 K/uL (4.8-10.8)
[2022-01-17 11:33] LABS: CREATININE 0.6 mg/dL (0.5-1.5); POTASSIUM 4.5 mmol/L (3.5-5.1)
[2022-01-17 11:35] LABS: INR 1.09 (0.85-1.15); PROTHROMBIN TIME 11.8 SEC (9.6-11.6)
[2022-01-17 11:37] LABS: PARTIAL THROMBOPLASTIN TIME 32.2 SEC (26.3-35.5)
[2022-01-18 11:55] VITALS: BP 140/77
[~2022-01-19] VITALS: Ht 160 cm; Wt 65.8 kg
[2022-01-19] VITALS (12 sets, daily range): BP systolic 130–167; BP diastolic 65–86
[~2022-01-19 07:53] MED LIST changes: -DRON400T7 PO; +DULO60CA64 PO; -LORA10CA PO; +LOSA50TA64 PO; +METO50TA18 PO; -METO75TA PO; -OLME-9 PO; -RALO60TA13 PO; -SIMV-43 PO; +SIMV40TA59 PO; -TRIA10.8 NS; +VERA40TA5 PO; -VYZULTA 0.024% OU
[2022-01-19] MEDS ORDERED: 0.9%NACL 1000ML 1,000 ML IV ONE (08:52)
[2022-01-19] MEDS ORDERED: FLUMAZENIL 0.1MG/1ML 5ML VIAL IV ONE (08:52)
[2022-01-19] MEDS ORDERED: NALOXONE HCL 0.4 MG/1 ML ML ONE (08:52)
[2022-01-19] MEDS ORDERED: FENTANYL CITRATE PF 50 MCG/1 ML 2ML VIAL ONE (08:54)
[2022-01-19] MEDS ORDERED: MIDAZOLAM HCL 1 MG/ML 2ML VIAL ONE (08:54)
== END 2022-01-19 14:19 | disposition home or self-care (01) ==
LOC: DAH 07:53
PROVIDERS: ATTEND Internal Medicine Cardiovascular Disease
DX: I47.1 Supraventricular tachycardia (principal); I48.0 Paroxysmal atrial fibrillation; I11.0 Hypertensive heart disease with heart failure; I50.32 Chronic diastolic (congestive) heart failure; E78.5 Hyperlipidemia, unspecified; E11.9 Type 2 diabetes mellitus without complications; Z90.710 Acquired absence of both cervix and uterus; Z98.890 Other specified postprocedural states; Z82.49 Family history of ischemic heart disease and other diseases of the circulatory system; Z83.3 Family history of diabetes mellitus; Z79.01 Long term (current) use of anticoagulants; Z79.899 Other long term (current) drug therapy
CPT/HCPCS: 36415; 80048; 85025; 85610; 85730; 92960; A4215; A4216; A4221; A4223 ×3; A4606; A4663; A7002; J2250; J3010; J7030 ×2; 99152; J2310; J3490

== ENCOUNTER → 2022-09-27 | Outpatient (CLI) | payer MEDICARE, OTHER | END | disposition home or self-care (01) | LOC: RAH 09:48 | PROVIDERS: ATTEND Nurse Practitioner Family | DX: I25.10 Atherosclerotic heart disease of native coronary artery without angina pectoris (principal); N64.4 Mastodynia; N63.0 Unspecified lump in unspecified breast | CPT/HCPCS: 76641; 77066 ==

== ENCOUNTER → 2022-10-26 | Outpatient (CLI) | payer MEDICARE, OTHER ==
[~2022-10-26] MED LIST changes: +LIDOCAINE HCL MPF 1% 5ML VIAL ONE
[2022-10-26 09:07] LABS: INR 1.01 (0.85-1.15)
[2022-10-26 09:08] LABS: PARTIAL THROMBOPLASTIN TIME 27.4 SEC (26.3-35.5)
== END | disposition home or self-care (01) ==
LOC: RAH 08:08
PROVIDERS: ATTEND Internal Medicine
DX: C50.012 Malignant neoplasm of nipple and areola, left female breast (principal); J01.90 Acute sinusitis, unspecified; J06.9 Acute upper respiratory infection, unspecified; Z90.710 Acquired absence of both cervix and uterus; Z79.01 Long term (current) use of anticoagulants; Z98.42 Cataract extraction status, left eye
CPT/HCPCS: 19083; 85610; 85730; 36415; J3490; A4215 ×3

== ENCOUNTER → 2023-05-29 | Outpatient (CLI) | payer MEDICARE, OTHER ==
[~2023-05-29] MED LIST changes: -LIDOCAINE HCL MPF 1% 5ML VIAL ONE
== END | disposition home or self-care (01) ==
LOC: RAH 13:53
PROVIDERS: ATTEND Internal Medicine
DX: C50.112 Malignant neoplasm of central portion of left female breast (principal); N64.4 Mastodynia
CPT/HCPCS: 76604; 77065

== ENCOUNTER → 2024-06-12 | Outpatient (CLI) | payer MEDICARE ==
[2024-06-12 12:39] LABS: ALBUMIN 4.2 g/dL (3.5-5.0); BILIRUBIN,TOTAL 0.7 mg/dL (0.2-1.0); CREATININE 0.6 mg/dL (0.5-1.0); POTASSIUM 3.8 mmol/L (3.5-5.1); THYROID STIMULATING HORMONE 4.74 uIU/mL (0.36-3.74); TOTAL PROTEIN, SERUM 7.8 g/dL (6.0-8.3)
[2024-06-12 13:05] LABS: MAGNESIUM 2.2 mg/dL (1.80-2.40)
== END | disposition home or self-care (01) ==
LOC: LAB 09:47
PROVIDERS: ATTEND Nurse Practitioner Acute Care
DX: I48.0 Paroxysmal atrial fibrillation (principal)
CPT/HCPCS: 36415; 80053; 83735; 83880; 84439; 84443

== ENCOUNTER → 2025-06-03 | Outpatient (CLI) | payer MEDICARE ==
--- NOTE | 2025-06-04 08:55 | HMCIMG ---
DIGITAL right breast DIAGNOSTIC MAMMOGRAM and axillary view Technique: The digital mammographic examination of right breast in craniocaudal, mediolateral oblique views along with CAD was obtained. Axillary view of the left breast was also obtained. History: This is a 84 years year-old female 3, para3 Ab0 . Patient has history of left breast mastectomy for breast cancer with radiation therapy patient is currently on hormonal renée. Patient has no family history of breast cancer. Patient has no complaint Reference:Prior mammogram from 05/30/2024, 05/29/2023, 09/27/2022, are available for comparison.. Breast composition: Breast composition C: The breasts are heterogeneously dense, which may obscure small masses. Finding: The digital mammographic examination of right breast. In craniocaudal and mediolateral oblique view along with CAD demonstrates to be moderately dense. There is benign vascular calcification suggesting of atherosclerotic changes. There are solitary multiple macrocalcification seen in the right breast. The left axillary view demonstrate there is no lesion seen.. There is no evidence of any dendritic mass, cluster microcalcification or architectural distortion. The retromammary fat appears to be normal. IMPRESSION: Unchanged from prior mammography. NO RADIOGRAPHIC EVIDENCE OF MALIGNANT CHANGES. WE WOULD RECOMMEND ANNUAL FOLLOW UP WITH TOMOSYNTHESIS UNLESS OTHERWISE CLINICALLY INDICATED. FINAL ASSESSMENT: ACR: BI-RAD- 2. Benign: Also a negative assessment; finding(s) benign abnormalities. Management: Routine mammography screening. Likelihood of Cancer: Essentially 0% likelihood of malignancy. NOTE: IF A WORK-UP OF THIS PATIENT LEADS TO A BIOPSY, PLEASE FORWARD A COPY OF THE PATHOLOGY REPORT TO OUR OFFICE REQUIRED BY [facility] EFFECTIVE JUNE 18, 1994. A NEGATIVE MAMMOGRAM SHOULD NOT PRECLUDE BIOPSY OF A CLINICALLY PALPABLE SUSPICIOUS MASS, 10% OF BREAST CANCERS ARE MAMMOGRAPHICALLY OCCULT. THIS MAMMOGRAPHY FACILITY IS FULLY ACCREDITED BY THE FOOD AND DRUG [employer]MIN[employer]RATION (FDA). THANK YOU FOR THIS REFERRAL.
== END | disposition home or self-care (01) ==
LOC: RAH 11:07
PROVIDERS: ATTEND Internal Medicine
DX: C50.112 Malignant neoplasm of central portion of left female breast (principal); R92.332 Mammographic heterogeneous density, left breast; Z90.12 Acquired absence of left breast and nipple; Z85.3 Personal history of malignant neoplasm of breast
CPT/HCPCS: 77065